=== PATIENT | female | born 1985 | race Caucasian/White ===

== ENCOUNTER → 2020-10-26 | Outpatient (CLI) | payer SELFPAY ==
[~2020-10-26] MED LIST: MACROBID 1100 MG/CAP PO; NYQUIL GENERIC PO; ZITHROMAX Z PA250 MG PO
== END ==
LOC: COL.RAD 07:03
DX: R10.33 Periumbilical pain (principal)

== ENCOUNTER 2020-12-15 12:19 | Emergency (ER) | payer SELFPAY ==
[~2020-12-15 12:19] MED LIST changes: -MACROBID 1100 MG/CAP PO
[2020-12-15 12:34] VITALS: BP 154/111; TEMP 99.6
[2020-12-15 13:11] LABS: COLLECTION METHOD CLEAN CATCH
[2020-12-15 13:25] LABS: PH 7 (5-8); URINE APPEARANCE Clear; URINE BACTERIA Rare /hpf; URINE BILIRUBIN Negative (NEGATIVE); URINE BLOOD 2+ (NEGATIVE); URINE COLOR Straw; URINE GLUCOSE Negative (NEGATIVE); URINE KETONE Negative (NEGATIVE); URINE LEUKOCYTE ESTERASE 1+ (NEGATIVE); URINE NITRATE Negative (NEGATIVE); URINE PROTEIN(semi-quant) Negative (NEGATIVE); URINE RBC 0-2 /hpf; URINE UROBILINOGEN Negative (NEGATIVE)
[2020-12-15] MEDS ORDERED: MACROBID 1100 MG/CAP PO (14:19)
[2020-12-15 14:47] VITALS: PULSE 80
== END 2020-12-15 14:54 | disposition home or self-care (01) ==
LOC: COL.ER 12:19
PROVIDERS: Nurse Practitioner Primary Care
DX: N39.0 Urinary tract infection, site not specified (principal); Z32.02 Encounter for pregnancy test, result negative